=== PATIENT | male | born 1985 | race Hispanic/Latino ===

== ENCOUNTER 2024-08-05 20:50 | Emergency (ER) | payer SELFPAY ==
[2024-08-05] MEDS ORDERED: ONDANSETRON 4 MG/2 ML VIAL ONE (21:27)
[2024-08-05] MEDS ORDERED: FAMOTIDINE 20 MG/2 ML VIAL IV ONE (21:28)
[2024-08-05] MEDS ORDERED: NA CHLORIDE 0.9% 1,000 ML ONE (21:28)
[2024-08-05 22:01] LABS: Urine Bilirubin NEGATIVE (Negative); Urine Blood Negative (Negative); Urine Clarity Clear (Clear); Urine Color Light-Yellow (Yellow); Urine Glucose NEGATIVE (Negative); Urine Ketones NEGATIVE (Negative); Urine Microscopic Reflex YN NO UMIC; Urine Nitrite NEGATIVE (Negative); Urine Protein NEGATIVE (Negative); Urine Urobilinogen Normal (Normal); Urine pH 6.5 (5.0-7.0)
[2024-08-05 22:02] LABS: PT Prothrombin Time 10.9 SECONDS (10-13.0); Protime INR 0.95
[2024-08-05 22:03] LABS: Absolute Eosinophils 0.2 K/uL (0-0.5); Absolute Lymphocytes (CBC) 2.4 K/uL (0.7-4.9); Absolute Monocytes 0.3 K/uL (0.1-1.3); Absolute Neutrophil 4.1 K/uL (1.8-8.0); Basophils % 0.7 % (0-1.3); Eosinophils % 2.8 % (0-4.4); Hematocrit 42.1 % (39.6-49.0); Hemoglobin 14.3 g/dL (13.6-17.9); Lymphocytes % 34.3 % (15.3-44.8); MCH 28.9 pg (27.0-35.0); MCV 85.1 fL (80-100); MPV 8.2 fL (7.6-11.3); Monocytes % 4.7 % (3.3-12.3); Neutrophils % 57.5 % (41.7-73.7); Nucleated Red Blood Cells % 0.3 % (0-0); Platelets 261 thou/uL (152-406); RBC Red Blood Cell Count 4.95 M/uL (4.33-5.43); Red Cell Distribution Width 13.2 % (12.1-15.2)
[2024-08-05 22:14] LABS: ALT/SGPT 24 U/L (16-61); AST/SGOT 15 U/L (15-37); Albumin/Globulin Ratio 1.1 (1.1-1.8); Alkaline Phosphatase 98 U/L (45-117); Anion Gap 8.6 mEq/L (5.0-15.0); BUN Blood Urea Nitrogen 12 mg/dL (7-18); Bicarbonate 26 mEq/L (21-32); Bilirubin Total 0.3 mg/dL (0.2-1.0); Globulin 3.7 g/dL (2.3-3.5); Glomerular Filtration Rate 108 ml/min (=/>90); Glucose Level 101 mg/dL (74-106); Lipase 31 U/L (13-75); Magnesium 2.3 mg/dL (1.6-2.4); Potassium 3.6 mEq/L (3.5-5.1); Protein, Total 7.7 g/dL (6.4-8.2); Sodium Level 138 mEq/L (136-145); Troponin High Sensitivity 34.5 pg/mL (<58.9)
[2024-08-05 22:22] LABS: Bilirubin Direct < 0.2 mg/dL (0-0.2); Bilirubin Indirect, Calculated 0.1 mg/dL (0.2-0.8)
--- NOTE | 2024-08-05 22:33 | RAD REPORT ---
Procedure: Chest Single View HISTORY: Chest pain COMPARISON: none FINDINGS: The lungs appear clear of acute infiltrate. No significant pleural effusion noted. The heart is normal size. IMPRESSION: No acute abnormality is displayed.
--- NOTE | 2024-08-06 00:15 | RAD REPORT ---
Clinical Indication: IV ONLY Bed Name: DX1. Abdominal pain Comparison: None. TECHNIQUE: Helical imaging was performed from diaphragm through the pelvis after IV contrast administ ration with multiplanar reformations obtained. Coronal and sagittal reformats were performed and provided as separate series. IV CONTRAST: IV contrast dose was not provided. GI CONTRAST: GI contrast was not administered CT Radiation Dose: DLP = 813.2 mGy-cm All CT scans at this location are performed using dose optimization techniques as appropriate to perf orm the study. Radiation dose reduction technique was utilized including one or more of the following: Automated exp osure control, adjustment of the mA and/or kV according to patient size and use of iterative reconstruction technique. FINDINGS: LOWER CHEST: The visualized lung bases are clear. LIVER: The liver is slightly hypodense, consistent with mild fatty infiltration. GALLBLADDER: Unremarkable. INTRAHEPATIC BILE DUCT AND EXTRAHEPATIC BILE DUCT: Unremarkable. PANCREAS: Unremarkable. SPLEEN: Unremarkable. ADRENALS: Unremarkable. KIDNEYS AND URETERS: The renal contours are normal. There is no hydronephrosis. No calcified brennan l stones are noted. No surrounding fat stranding is noted. STOMACH: Evaluation of the stomach and bowel is limited due to lack of oral contrast. No gross abno rmalities of the stomach are noted. BOWEL: The small bowel loops in the abdomen and pelvis appear unremarkable. The colonic loops in the abdomen and pelvis appear unremarkable. APPENDIX: The appendix is normal in caliber without surrounding inflammatory changes. PERITONEUM AND RETROPERITONEUM: No ascites or free air. No loculated fluid collection is noted. The re is no aortic aneurysm or dissection. PELVIS: The prostate is unremarkable. BLADDER: Unremarkable LYMPH NODES: Unremarkable. OSSEOUS STRUCTURES: No acute abnormality seen. Bilateral pars defect is noted at L5. There is grade 1 anterolisthesis of L5 on S1 of approximately 6 mm. SOFT TISSUES: Unremarkable. IMPRESSION: 1. No acute abnormality of the abdomen or pelvis is noted. 2. Mild fatty infiltration of the liver. 3. Bilateral pars defect at L5 with grade 1 anterolisthesis of L5 on S1. Electronically signed by: Jr Murillo MD 08/06/2024 12:11 AM CDT RP Due to temporary technical issues with the PACS/[employer] reporting system, reports are being maged d by the in-house radiologist without review as a courtesy to ensure prompt reporting the interpreting radiologist is fully responsible for the content of the report. Transcribed Date/Time: 08/06/2024 12:14 AM
--- NOTE | 2024-08-06 01:20 | RAD REPORT ---
CLINICAL HISTORY: Headache. COMPARISON: None. TECHNIQUE: CT HEAD WITHOUT IV CONTRAST on 08/05/2024 10:33 PM CDT This exam was performed according to our departmental dose-optimization program, which includes autom ated exposure control, adjustment of the mA and/or kV according to patient size and/or use of iterative reconstruction technique. FINDINGS: There is no acute hemorrhage, mass effect or midline shift. Alvarado-white differentiation is preserved. There is no hydrocephalus. There is no significant volume loss for age. The calvarium is intact. Orbits and globes are unremarkable. There is mild thickening of the maxillar y sinuses and ethmoid air cells. Mastoid air cells are clear. IMPRESSION: No acute intracranial findings. Electronically signed by: Austin Patel MD 08/06/2024 01:04 AM CDT RP Due to temporary technical issues with the PACS/[employer] reporting system, reports are being maged d by the in-house radiologist without review as a courtesy to ensure prompt reporting the interpreting radiologist is fully responsible for the content of the report. Transcribed Date/Time: 08/06/2024 1:19 AM
--- NOTE | 2024-08-06 01:40 | EDPHYS ---
Physician Documentation [facility] Name: Mati Pelayo Age: 38 yrs Sex: Male : 1985 Arrival Date: 08/05/2024 Time: 20:50 Bed 9 Private MD: ED Physician Efrain Marino HPI: 08/05 21:55 This 38 yrs old Male presents to ER via Ambulatory with complaints of cp Abdominal Pain, Nausea, Dizziness. 21:55 The patient presents with abdominal pain left upper abdomen. Onset: The cp symptoms/episode began/occurred 6 week(s) ago, and became persistent today. The symptoms radiate to Associated signs and symptoms: Pertinent positives: headache, numbness of hands. The symptoms are described as waxing/waning. Severity of pain: in the emergency department the pain is unchanged despite home interventions. Historical: - Allergies: 21:06 No Known Allergies; kd3 - Immunization history:: Adult Immunizations up to date. - Infectious Disease History:: Denies. - Social history:: Smoking status: Patient denies any tobacco usage or history of. ROS: 22:00 Constitutional: Negative for body aches, chills, fever, poor PO intake, weight loss, cp 22:00 Eyes: Negative for injury, pain, redness, and discharge, cp 22:00 ENT: Negative for drainage from ear(s), ear pain, sore throat, difficulty swallowing, difficulty handling secretions, 22:00 Cardiovascular: Negative for chest pain, 22:00 Respiratory: Negative for cough, shortness of breath, wheezing, 22:00 Abdomen/GI: Positive for abdominal pain, nausea and vomiting, Negative for diarrhea, constipation, anorexia, hematemesis, 22:00 Neuro: Positive for headache, numbness, Negative for altered mental status, speech changes, syncope, weakness, 22:00 All other systems are negative, Exam: 21:51 ECG was reviewed by the Attending Physician. cp 22:05 Constitutional: The patient appears in no acute distress, alert, awake, cp non-diaphoretic, non-toxic, well developed, well nourished, uncomfortable, 22:05 Head/Face: Normocephalic, atraumatic. cp 22:05 Eyes: Periorbital structures: appear normal, Pupils: equal, round, and reactive to light and accomodation, Extraocular movements: intact throughout, Conjunctiva: normal, no exudate, no injection, Sclera: no appreciated abnormality, Lids and lashes: appear normal, bilaterally, 22:05 ENT: External ear(s): are unremarkable, Nose: is normal, Mouth: Lips: moist, Oral mucosa: moist, Posterior pharynx: Airway: no evidence of obstruction, patent, erythema, is not appreciated, exudate, is not appreciated, 22:05 Neck: ROM/movement: is normal, is supple, without pain, no range of motions limitations, 22:05 Chest/axilla: Inspection: normal, 22:05 Cardiovascular: Rate: bradycardic, Rhythm: regular, Edema: is not appreciated, JVD: is not appreciated, 22:05 Respiratory: the patient does not display signs of respiratory distress, Respirations: normal, no use of accessory muscles, no retractions, labored breathing, is not present, Breath sounds: are clear throughout, no decreased breath sounds, no stridor, no wheezing, 22:05 Abdomen/GI: Inspection: abdomen appears normal, Bowel sounds: active, all quadrants, Palpation: soft, in all quadrants, mild abdominal tenderness, in the left upper quadrant, rebound tenderness, is not appreciated, involuntary guarding, is not appreciated, 22:05 Back: CVA tenderness, is absent, 22:05 Neuro: Orientation: to person, place \T\ time. Mentation: is normal, Motor: moves all fours, strength is normal, Sensation: no obvious gross deficits, Gait: is steady, at a normal pace, without difficulty, Vital Signs: 21:04 BP 117 / 61; Pulse 52; Resp 19; Temp 98(O); Pulse Ox 98% on R/A; Weight 66.22 kg; kd3 08/06 00:09 BP 115 / 58; Pulse 52; Resp 17; Temp 98.7; Pulse Ox 100% on R/A; vk 02:00 BP 119 / 64; Pulse 61; Resp 18 S; Pulse Ox 99% on R/A; lg3 MDM: 08/05 21:10 Medical Screening Exam initiated cp 08/06 01:38 Data reviewed: vital signs, nurses notes, lab test result(s), EKG, radiologic studies, cp CT scan, plain films, and as a result, I will discharge patient. 01:38 Differential diagnosis: bowel obstruction, cholecystitis, Cholelithiasis, gastritis, cp gastroesophageal reflux disease, non-specific abd pain, pancreatitis, Peptic Ulcer Disease, Perf. Duodenal Ulcer, Perf. Gastric Ulcer, Pyelonephritis, Ureterolithiasis, urinary tract infection. I considered the following discharge prescriptions or medication management in the emergency department Medications were administered in the Emergency Department. See MAR. Independent interpretation of the following test(s) in the Emergency Department EKG: See my EKG interpretation above. Counseling: I had a detailed discussion with the patient and/or guardian regarding the historical points, exam findings, and any diagnostic results supporting the discharge/admit diagnosis, lab results, radiology results, to return to the emergency department if symptoms worsen or persist or if there are any questions or concerns that arise at home. Response to treatment: the patient's symptoms have mildly improved after treatment, and as a result, I will discharge patient. 08/05 21:26 Order name: Basic Metabolic Panel; Complete Time: 01: 08/06 01:13 Interpretation: Reviewed. 08/05 20: Order name: CBC with Diff; Complete Time: 01: 08/06 01:13 Interpretation: Reviewed. 08/05 21:26 Order name: LFT's; Complete Time: 01:13 08/06 01:13 Interpretation: Normal except: IBILI, CALC 0.1; GLOB 3.7. 08/05 21:26 Order name: Magnesium; Complete Time: 01:13 08/05 21:26 Order name: PT-INR; Complete Time: 01:13 08/05 21:26 Order name: Troponin HS; Complete Time: 01: 08/06 01:14 Interpretation: Reviewed. 08/05 21:26 Order name: Lipase; Complete Time: 01:13 08/05 21:26 Order name: UA Rfx Farhat Cult if indicated; Complete Time: 01:13 lg3 08/06 01:34 Interpretation: Reviewed. 08/05 21:26 Order name: XRAY Chest (1 view); Complete Time: 01:13 08/05 22:33 Order name: CT Head Brain wo Cont 08/06 01:32 Interpretation: Report reviewed. 08/05 22:33 Order name: CT Abd/Pelvis - IV Contrast Only 08/06 01:15 Interpretation: Report reviewed. cp 08/05 21:26 Order name: EKG; Complete Time: 21: cp 08/05 21:26 Order name: EKG - Nurse/Tech; Complete Time: 21:49 cp 08/05 21: Order name: IV Saline Lock; Complete Time: : cp 08/05 21:26 Order name: Labs collected and sent; Complete Time: 21: cp 08/05 21:26 Order name: O2 Per Protocol; Complete Time: :32 cp 08/05 21: Order name: O2 Sat Monitoring; Complete Time: :32 cp EC/10 21:51 Rate is 47 beats/min. Rhythm is regular. DC interval is normal. QRS interval is cp prolonged at 104 msec. QT interval is normal. T waves are Inverted in lead aVR. Interpreted by me. Reviewed by me. Administered Medications: 21:32 Drug: Ondansetron IVP 4 mg IVP once; over 2 minutes Route: IVP; Site: left antecubital; lg3 23:16 Follow up: Response: No adverse reaction lg3 21:32 Drug: NS 0.9% IV 1000 ml IV at 1 bolus Per protocol; to be given as a bolus over 60 lg3 minutes Route: IV; Rate: 1 bolus; Site: left antecubital; 23:16 Follow up: Response: No adverse reaction; IV Status: Completed infusion; IV Intake: lg3 1000ml 21:32 Drug: Famotidine IVP 20 mg IVP once; dilute with 10 mL 0.9% NaCl; give over 2 minutes lg3 Route: IVP; Site: left antecubital; 23:15 Follow up: Response: No adverse reaction lg3 Disposition Summary: 08/06/24 01:39 Discharge Ordered Notes: Location: Home cp Problem: new cp Symptoms: have improved cp Condition: Stable cp Diagnosis - Abdominal pain, unspecified cp - Headache cp Followup: cp - With: Private Physician - When: 2 - 3 days - Reason: Recheck today's complaints Discharge Instructions: - Discharge Summary Sheet cp - Abdominal Pain, Adult cp - General Headache Without Cause cp - Nausea, Adult cp Forms: - Medication Reconciliation Form cp - Antibiotic Education cp - Prescription Opioid Use cp - Patient Portal Instructions cp - Leadership Thank You Letter cp Prescriptions: - Pepcid 20 mg Oral Tablet - take 1 tablet ORAL route every 12 hours for 10 days; 20 tablet; Refills: 0, cp Product Selection Permitted - Zofran 4 mg Oral Tablet - take 1 tablet ORAL route every 12 hours As needed; 20 tablet; Refills: 0, cp Product Selection Permitted Signatures: Dispatcher [employer] Efrain Jenkins PA PA cp Able, Lacie RN RN lg3 Hailee Love RN RN kd3
--- NOTE | 2024-08-06 01:40 | ER ---
Nurse's Notes [facility] Name: Mati Pelayo Age: 38 yrs Sex: Male : 1985 Arrival Date: 08/05/2024 Time: 20:50 Bed 9 Private MD: Diagnosis: Abdominal pain, unspecified;Headache Presentation: 08/05 21:05 Chief complaint: Patient states: I have been having some left upper quadrant stomach kd3 pains that are sharp and i have had a headache. My hands are numb. it all started like 6 weeks ago, Now it is worse. It used to come and go but now the pain is constant. Coronavirus screen: Vaccine status: Patient reports being unvaccinated. Ebola Screen: No symptoms or risks identified at this time. Initial Sepsis Screen: Does the patient meet any 2 criteria? No. Patient's initial sepsis screen is negative. Does the patient have a suspected source of infection? No. Patient's initial sepsis screen is negative. Risk Assessment: Do you want to hurt yourself or someone else? Patient reports no desire to harm self or others. Onset of symptoms. 21:05 Method Of Arrival: Ambulatory kd3 21:05 Acuity: LU 3 kd3 21:06 Onset of symptoms was June 27, 2024. kd3 Triage Assessment: 21:06 General: Appears in no apparent distress. Behavior is calm, cooperative. Pain: kd3 Complains of pain in left upper quadrant. GI: Reports upper abdominal pain. Historical: - Allergies: 21:06 No Known Allergies; kd3 - Immunization history:: Adult Immunizations up to date. - Infectious Disease History:: Denies. - Social history:: Smoking status: Patient denies any tobacco usage or history of. Screenin:05 [facility] ED Fall Risk Assessment (Adult) History of falling in the last 3 months, kd3 including since admission No falls in past 3 months (0 pts) Confusion or Disorientation No (0 pts) Intoxicated or Sedated No (0 pts) Impaired Gait No (0 pts) Mobility Assist Device Used No (0 pt) Altered Elimination No (0 pt) Score/Fall Risk Level 0 - 2 = Low Risk Oriented to surroundings, Maintained a safe environment, Educated pt \T\ family on fall prevention, incl call for assistance when getting out of bed, Assessed \T\ reinforced patient's understanding of fall precautions. Abuse screen: Denies threats or abuse. Denies injuries from another. Nutritional screening: No deficits noted. Tuberculosis screening: No symptoms or risk factors identified. Assessment: 21:05 General: see triage assessment. kd3 22:04 Reassessment: Patient appears in no apparent distress at this time. No changes from kd3 previously documented assessment. Patient and/or family updated on plan of care and expected duration. Pain level reassessed. Patient is alert, oriented x 3, equal unlabored respirations, skin warm/dry/pink. 08/06 00:45 Reassessment: Patient appears in no apparent distress at this time. No changes from lg3 previously documented assessment. Patient and/or family updated on plan of care and expected duration. Pain level reassessed. Patient is alert, oriented x 3, equal unlabored respirations, skin warm/dry/pink. 02:00 Reassessment: Patient appears in no apparent distress at this time. No changes from lg3 previously documented assessment. Patient and/or family updated on plan of care and expected duration. Pain level reassessed. Patient is alert, oriented x 3, equal unlabored respirations, skin warm/dry/pink. Patient states feeling better. Patient states symptoms have improved. Vital Signs: 08/05 21:04 BP 117 / 61; Pulse 52; Resp 19; Temp 98(O); Pulse Ox 98% on R/A; Weight 66.22 kg; kd3 05 00:09 BP 115 / 58; Pulse 52; Resp 17; Temp 98.7; Pulse Ox 100% on R/A; vk 02:00 BP 119 / 64; Pulse 61; Resp 18 S; Pulse Ox 99% on R/A; lg3 ED Course: 08/05 20:52 Patient arrived in ED. mr 21:03 Efrain Walton PA is PHCP. cp 21:03 Efrain Marino MD is Attending Physician. cp 21:05 Patient has correct armband on for positive identification. kd3 21:05 Patient maintains SpO2 saturation greater than 95% on room air. kd3 21:06 Triage completed. kd3 21:06 Arm band placed on left wrist. kd3 21:23 Inserted saline lock: 20 gauge in left antecubital area, using aseptic technique. Blood vk collected. Flushed with 10 mL NS. Inserted saline lock: Flushed with 10 mL NS. 21:24 Urine collected: clean catch specimen, clear. vk 21:31 Basic Metabolic Panel Sent. vk 21:31 CBC with Diff Sent. vk 21:31 LFT's Sent. vk 21:31 Magnesium Sent. vk 21:31 PT-INR Sent. vk 21:31 Troponin HS Sent. vk 22:15 EKG done, by ED staff, reviewed by Efrain KANG. oe 22:23 XRAY Chest (1 view) In Process Unspecified. EDMS 23:18 CT Head Brain wo Cont In Process Unspecified. EDMS 23:18 CT Abd/Pelvis - IV Contrast Only In Process Unspecified. EDMS 23:59 Lynda Griffith, RN is Primary Nurse. lg3 08/06 02:00 No provider procedures requiring assistance completed. IV discontinued, intact, lg3 bleeding controlled, No redness/swelling at site. Pressure dressing applied. Administered Medications: 08/05 21:32 Drug: Ondansetron IVP 4 mg IVP once; over 2 minutes Route: IVP; Site: left antecubital; lg3 23:16 Follow up: Response: No adverse reaction lg3 21:32 Drug: NS 0.9% IV 1000 ml IV at 1 bolus Per protocol; to be given as a bolus over 60 lg3 minutes Route: IV; Rate: 1 bolus; Site: left antecubital; 23:16 Follow up: Response: No adverse reaction; IV Status: Completed infusion; IV Intake: lg3 1000ml 21:32 Drug: Famotidine IVP 20 mg IVP once; dilute with 10 mL 0.9% NaCl; give over 2 minutes lg3 Route: IVP; Site: left antecubital; 23:15 Follow up: Response: No adverse reaction lg3 Medication: 08/06 02:00 VIS not applicable for this client. lg3 Intake: 08/05 23:16 IV: 1000ml; Total: 1000ml. lg3 Outcome: 08/06 01:39 Discharge ordered by . cp 02:00 Discharged to home ambulatory, lg3 02:00 Condition: stable 02:00 Discharge instructions given to patient, Instructed on discharge instructions, follow up and referral plans. medication usage, Demonstrated understanding of instructions, follow-up care, medications, Prescriptions given X 2, 02:01 Patient left the ED. lg3 Signatures: Dispatcher [employer] EDJuana Mcguire Reg Reg mr Isabelle, Efrain, Orestes Doyle cp, Lacie, RN RN lg3 Hailee Love RN RN kd3 Jenny Turner
[2024-08-06 02:25] VITALS: TEMP 98.7
[2024-08-06 02:27] VITALS: BP 119/64; O2SAT 99
--- NOTE | 2024-08-07 12:00 | EKG ---
Test Date: 2024-08-05 Test Time: 21:44:55 Glue Mounter Operator: DIANA MEASUREMENT RESULTS: Intervals: Rate: 47 AL: 158 QRSD: 104 QT: 434 QTc: 384 [place]: P: 72 AL: 158 QRS: 73 T: 75 INTERPRETIVE STATEMENTS: Sinus bradycardia Otherwise normal ECG No previous ECG available for comparison Electronically Signed On 08-07-24 11:56:56 CDT by Giovanni Samuel
== END 2024-08-06 02:01 | disposition home or self-care (01) ==
LOC: ER 20:50
DX: R10.12 Left upper quadrant pain (principal); R51.9 Headache, unspecified
CPT/HCPCS: 36415; 70450; 71045; 74177; 80048; 80076; 81003; 83690; 83735; 84484; 85025; 85610; 93005; 96361; 96374; 96375; 99284; J2405; J7030; Q9967